=== PATIENT | female | born 1935 | race Caucasian/White ===

== ENCOUNTER → 2022-06-06 | Outpatient (REF) | payer MEDICARE, SELFPAY ==
[2022-06-06 08:10] LABS: INR Fingerstick 5.6; Prothrombin Time Fingerstick 57.1 SEC (11.7-14.9)
[2022-06-06 08:30] LABS: Prothrombin Time (Protime)PT. 47.2 SECONDS (11.7-14.9)
[2022-06-06 08:43] LABS: International Normalized Ratio 5.1
== END ==
LOC: OLS.ACH 05:00
PROVIDERS: Visit Provider Internal Medicine
DX: D68.2 Hereditary deficiency of other clotting factors (principal)
CPT/HCPCS: 36416; 85610